=== PATIENT | male | born 1985 | race Caucasian/White ===

== ENCOUNTER 2020-08-09 18:11 | Emergency (ER) | payer MEDICAID ==
[~2020-08-09] VITALS: Ht 167.6 cm; Wt 79.0 kg
[2020-08-09 23:20] VITALS: BP 119/79
== END 2020-08-09 23:25 | disposition home or self-care (01) ==
LOC: ER 18:11
DX: Z01.30 Encounter for examination of blood pressure without abnormal findings (principal)
CPT/HCPCS: 82962; 99281; Z7610

== ENCOUNTER 2024-09-14 15:34 | Emergency (ER) | payer MEDICAID ==
[~2024-09-14] VITALS: Ht 165.1 cm; Wt 64.0 kg
[2024-09-14 15:49] VITALS: O2SAT 100
[2024-09-14] MEDS: KETOROLAC 30MG/ML VIAL IM ONE (18:33)
[2024-09-14] MEDS: LIDOCAINE 5% PATCH TOP SCH (18:34)
[2024-09-14 19:19] LABS: CLARITY URINE CLEAR (CLEAR); COLOR URINE YELLOW (YELLOW); GLUCOSE URINE NEGATIVE (NEGATIVE); KETONES URINE NEGATIVE (NEGATIVE); LEUKOCYTE ESTERASE URINE NEGATIVE (NEGATIVE); NITRITE URINE NEGATIVE (NEGATIVE); OCCULT BLOOD URINE NEGATIVE (NEGATIVE); PROTEIN URINE NEGATIVE (NEGATIVE); SPECIFIC GRAVITY URINE 1.012 (1.005-1.030); UROBILINOGEN URINE 0.2 E.U./dL (0.2-1.0)
[2024-09-14] MEDS ORDERED: CYCL10TA21 MT (19:41)
[2024-09-14] MEDS ORDERED: KETO10TA2 MT (19:41)
[2024-09-14] MEDS ORDERED: LIDO-53 TP (19:41)
[2024-09-14 20:03] VITALS: BP 112/75; PULSE 75; RESP 12; TEMP 36.8; O2SAT 99
== END 2024-09-14 20:06 | disposition home or self-care (01) ==
LOC: ER 15:34
DX: K82.4 Cholesterolosis of gallbladder (principal); R10.11 Right upper quadrant pain; M54.50 Low back pain, unspecified; Z79.899 Other long term (current) drug therapy
CPT/HCPCS: 81003; 72100; 76705; 96372; 99285; J1885; Z7610